=== PATIENT | female | born 1985 | race Two or more races ===

== ENCOUNTER 2023-10-06 22:45 | Emergency (ER) | payer OTHER ==
[~2023-10-06] VITALS: Ht 167.6 cm; Wt 63.5 kg
== END 2023-10-07 02:45 | disposition home or self-care (01) ==
LOC: ER 22:45
DX: S90.31XA Contusion of right foot, initial encounter (principal); X58.XXXA Exposure to other specified factors, initial encounter; Y93.9 Activity, unspecified; Y92.9 Unspecified place or not applicable; Y99.9 Unspecified external cause status